=== PATIENT | male | born 1995 | race Hispanic/Latino ===

== ENCOUNTER 2024-04-12 18:12 | Emergency (ER) | payer SELFPAY ==
[2024-04-12 18:16] VITALS: BP 128/82
[2024-04-12] MEDS: MOTRIN 600 MG PO (18:32)
[2024-04-12] MEDS: FLEXERIL 10 MG PO (19:44)
--- NOTE | 2024-04-12 20:34 | ED.GENMED ---
History of Present Illness
General
Chief Complaint: Back Pain
Source: patient
Exam Limitations: none
Time Seen by Provider: 04/12/24 18:19
Nursing documentation reviewed up to this point in time: agreed with
History of Present Illness
History of Present Illness:
Patient to eD with complaint of bilateral lower back pain. Pain started today. Denies fever/chills. No history of trauma. No urinary symptoms. Brought self to ED for eval.
Past History
Past History
ED Past Medical History: None
ED Past Surgical History: None
Review of Systems
Review of Systems
Allergies reviewed?: Yes
All Other Systems: ROS reviewed and negative except as documented in HPI and ROS
Constitutional: Reports no symptoms
EENT: Reports no symptoms
Respiratory: Reports no symptoms
Cardiac: Reports no symptoms
ABD/GI: Reports no symptoms
Musculoskeletal: Reports back pain (bilateral lower back)
Skin: Reports no symptoms
Neurological: Reports no symptoms
Psychiatric: Reports no symptoms
Phy Exam
General Physical Exam
General Presentation: well appearing and no apparent distress
General age: appears stated age
General Skin: warm and dry
General Habitus: normal
Gastrointestinal Exam
Gastrointestinal Exam: non tender, soft and no organomegaly
Musculoskeletal Exam
Musculoskeletal Exam: neuro vasc intact
Skin Exam
Skin Exam: normal color, warm/dry and no rash
Psychiatric Exam
Psychiatric Exam: normal mood/affect
Course
Orders/Labs/Results
Orders:
Orders
04/12/24 18:27
Ibuprofen [Motrin] 600 mg PO NOW STA
Lumbar Spine Complete, 4 View [CR Lumbar Spine Comp Min 4 Vw*] Urgent
Comment:
Reason For Exam: pain
04/12/24 19:34
Cyclobenzaprine HCl [Flexeril] 10 mg PO NOW STA
Vital Signs
Initial and Last Documented VS:
Initial Vital Signs
Temp Pulse Resp BP Pulse Ox
98.7 F 90 16 128/82 98
04/12/24 18:16 04/12/24 18:16 04/12/24 18:16 04/12/24 18:16 04/12/24 18:16
Last Documented Vital Signs
Temp Pulse Resp BP Pulse Ox
98.7 F 90 16 128/82 98
04/12/24 18:16 04/12/24 18:16 04/12/24 18:16 04/12/24 18:16 04/12/24 18:16
*Radiology
Radiology exam reviewed: radiology read reviewed
*Pulse Oximetry
Patient hypoxic: no
*Critical Care Note
Total Time (30-74mins, 75-104mins- exclusive of procedures): Not Applicable
ED Attending Note
-
Portions of this chart may have been created with voice recognition software.� Occasional wrong word or��sound alike� substitutions may have occurred due to the inherent limitations of voice recognition software.
Discharge Plan
Departure
Patient Disposition: Home (Routine Discharge)
Date of Disposition: 04/12/24
Time of Disposition: 19:34
Patient with high blood pressure during this ER visit?: No
Condition: Good
Covid-19: Not Applicable
Discharge Problem:
Low back pain
Instructions: Low Back Pain (DC), Back Muscle Strain, Using Cold for Pain
Prescriptions:
New
ibuprofen 600 mg tablet
600 mg PO Q6H PRN (Reason: Pain) Qty: 30 0RF
cyclobenzaprine 10 mg tablet
10 mg PO HS PRN (Reason: muscle spasms) Qty: 10 0RF
Referrals:
[facility] [Outside] - Follow up in 2-3 days
UNKNOWN - PT DOES,NOT KNOW [Family Provider] -
Stand Alone Forms: Return to Work
Interventions
Interventions:
*Risk Screen - Suicide Last Done: 04/12/24 18:34
*General Assessment Last Done: 04/12/24 18:34
*Neglect/Abuse Screening Last Done: 04/12/24 18:34
ED- Fall Risk Assessment Last Done: 04/12/24 19:44
*ED COVID-19 Vaccine History Last Done: 04/12/24 18:16
*Nursing Disposition Last Done: 04/12/24 19:44
ED-Musculoskeletal Assessment Last Done: 04/12/24 18:34
Discharge Date and Time
Discharge Date/Time: 04/12/24 19:50
Print Language: HUNGARIAN
== END 2024-04-12 19:50 | disposition home or self-care (01) ==
LOC: EMR 18:12
PROVIDERS: EMERGENCY PHYSICIAN Emergency Medicine
DX: M54.50 Low back pain, unspecified (principal)
CPT/HCPCS: 99283; 72110

== ENCOUNTER 2024-07-21 17:19 | Emergency (ER) | payer SELFPAY ==
[2024-07-21 17:20] VITALS: BP 129/94
[2024-07-21] MEDS: ADACEL 0.5 ML IM (17:36)
[2024-07-21] MEDS: KEFLEX 500 MG PO (17:36)
--- NOTE | 2024-07-21 19:38 | ED.GENMED ---
History of Present Illness
General
Chief Complaint: Skin Surface Trauma
Source: patient
Exam Limitations: none
Time Seen by Provider: 07/21/24 17:26
Nursing documentation reviewed up to this point in time: agreed with
History of Present Illness
History of Present Illness:
29-year-old male presenting to the emergency department with concerns of left-sided ring finger laceration that occurred yesterday from a circular saw. Ongoing discomfort to the area since. He is unsure when his last tetanus shot was. Denies
numbness weakness or additional concerns.
Past History
Past History
ED Past Medical History: None
ED Past Surgical History: None
Review of Systems
Review of Systems
Allergies reviewed?: Yes
All Other Systems: ROS reviewed and negative except as documented in HPI and ROS
Phy Exam
Physical Exam
Physical Exam:
GENERAL: Alert , in no apparent distress
EYE: pupils equal and reactive
NECK: Supple, no significant adenopathy.
ENT: o/p clr, mmm.
CARDIAC: Regular rate and rhythm .
LUNGS: Clear breath sounds bilaterally, no acute respiratory distress, no wheezes/rales/rhonchi
ABDOMEN: Soft, without focal tenderness, no r/g, no cvat
NEUROLOGICAL: Alert and oriented, no focal neuro deficits
SKIN: 2.5 cm laceration to the left sided ring finger distally extending to the distal midportion of the nail and the tip of the finger. Tender palpation to the area it does not cross the joint. No active bleeding no foreign body seen warm and
dry, skin intact.
MUSCULOSKELETAL: No edema, well perfused.
PSYCH: Normal and appropriate interaction.
Course
Orders/Labs/Results
Orders:
Orders
07/21/24 17:26
Cephalexin Monohydrate [Keflex] 500 mg PO NOW STA
Tetanus/Diphth/Acelpertussis [Adacel] 0.5 ml IM .ONCE ONE
CR Hand - Left Min 3 Views Urgent
Reason For Exam: left ring finger lac, possible fx
Vital Signs
Initial and Last Documented VS:
Initial Vital Signs
Temp Pulse Resp BP Pulse Ox
98.2 F 72 18 129/94 99
07/21/24 17:20 07/21/24 17:20 07/21/24 17:20 07/21/24 17:20 07/21/24 17:20
Last Documented Vital Signs
Temp Pulse Resp BP Pulse Ox
98.2 F 74 18 110/63 98
07/21/24 17:20 07/21/24 20:03 07/21/24 20:03 07/21/24 20:03 07/21/24 20:03
MDM/Problems Addressed
MDM/Problems Addressed:
29-year-old male presenting to the emergency department today with concerns of a laceration to his left sided ring finger that occurred yesterday via a circular saw. Vital signs normal here no signs of infection does have tenderness to the distal
finger. No fracture seen on x-ray patient was started on antibiotic considering his location. He was cleaned thoroughly here and bandaged but otherwise will not be closed primarily considering it has been roughly 24 hours since the injury.
Otherwise advised for close outpatient follow-up return precautions given. He was given an updated tetanus shot.
*Critical Care Note
Total Time (30-74mins, 75-104mins- exclusive of procedures): Not Applicable
ED Attending Note
-
Portions of this chart may have been created with voice recognition software.� Occasional wrong word or��sound alike� substitutions may have occurred due to the inherent limitations of voice recognition software.
Discharge Plan
Departure
Patient Disposition: Home (Routine Discharge)
Date of Disposition: 07/21/24
Time of Disposition: 19:38
Patient with high blood pressure during this ER visit?: No
Condition: Good
Covid-19: Not Applicable
Discharge Problem:
Finger laceration
Instructions: Wound Care (DC)
Prescriptions:
New
cephalexin 500 mg capsule
500 mg PO TID 3 Days Qty: 9 0RF
No Action
ibuprofen 600 mg tablet
600 mg PO Q6H PRN (Reason: Pain) Qty: 30 0RF
cyclobenzaprine 10 mg tablet
10 mg PO HS PRN (Reason: muscle spasms) Qty: 10 0RF
Referrals:
Bucky Moya MD [Family Provider] -
Activity Restrictions/Additional Instructions:
You came to the emergency department today with concerns of finger laceration. Concerning this was 24 hours after the injury we are unable to close this year. Please keep the area clean covered and take 3 times daily for the next 3 days. Please
follow close with the primary care doctor for reassessment. Return to the emergency department for any worsening, new or concerning symptoms.
Interventions
Interventions:
*Risk Screen - Suicide Last Done: 07/21/24 17:23
*General Assessment Last Done: 07/21/24 17:23
*Neglect/Abuse Screening Last Done: 07/21/24 17:23
*ED COVID-19 Vaccine History Last Done: 07/21/24 17:20
*Nursing Disposition Last Done: 07/21/24 20:03
ED-Skin Assessment Last Done: 07/21/24 17:23
Discharge Date and Time
Discharge Date/Time: 07/21/24 20:06
Print Language: BULGARIAN
[2024-07-21 20:03] VITALS: BP 110/63
== END 2024-07-21 20:06 | disposition home or self-care (01) ==
LOC: EMR 17:19
PROVIDERS: EMERGENCY PHYSICIAN Emergency Medicine; FAMILY PHYSICIAN Pediatrics
DX: S61.215A Laceration without foreign body of left ring finger without damage to nail, initial encounter (principal); W29.8XXA Contact with other powered hand tools and household machinery, initial encounter; Z23 Encounter for immunization
CPT/HCPCS: 99283; 90471; 73130